=== PATIENT | female | born 1960 | race Caucasian/White ===

== ENCOUNTER 2020-07-09 04:59 | Emergency (ER) | payer SELFPAY ==
[~2020-07-09] VITALS: Ht 157.5 cm; Wt 80.3 kg
--- NOTE | 2020-07-09 05:56 | NUR ---
CC OF NUMBNESS IN NECK AND L ARM FOR 1 MONTH WORSENING TODAY. PT STATES SHE HAS HAD INTERMITTENT BLURRY VISION AND DIFFICULTY SWALLOWING OVER LAST MONTH. PT APPEARS TO BE FORGETFUL ABOUT QUESTIONS IMMEDIATELY ASKED. PT A&0 X4 OTHERWISE. PUPILS PEARRLA, [employer] OW[employer] 4/4 BILAT UPPER AND LOWER EXT, NO WEAKNESS, DENIES DIZZINESS/LIGHTHEADNESS. DENIES HX OF CVA BUT STATES SHE HAS FAMILY HX OF IT.
--- NOTE | 2020-07-09 06:18 | NUR ---
PT IN CT
[2020-07-09 06:27] LABS: BASOPHILS % (AUTO) 1 % (0-1); EOSINOPHILS % (AUTO) 4 % (1-7); LYMPHOCYTES % (AUTO) 39 % (22-44); MEAN CORPUSCULAR HEMOGLOBIN 31.3 pg (27.0-34.8); MEAN CORPUSCULAR HGB CONC 33.8 g/dL (32.4-35.8); MEAN PLATELET VOLUME 7.5 fL (7.4-10.4); MONOCYTES % (AUTO) 7 % (2-9); NEUTROPHILS % (AUTO) 49 % (42-75); PLATELET COUNT 288 x10^3/uL (130-400); RED BLOOD COUNT 4.52 x10^6/uL (3.82-5.3); RED CELL DISTRIBUTION WIDTH 12.8 % (9.6-15.2)
--- NOTE | 2020-07-09 06:30 | NUR ---
BACK FROM CT
[2020-07-09 06:36] LABS: MD NO
[2020-07-09 06:39] LABS: ALANINE AMINOTRANSFERASE 30 U/L (12-78); ALBUMIN 3.8 g/dL (3.4-5.0); ANION GAP 6 mmol/L (5-15); CHLORIDE 110 mmol/L (98-107); CREATININE 0.88 mg/dL (0.55-1.02)
[2020-07-09 06:43] LABS: ALKALINE PHOSPHATASE 92 U/L (45-117); BILIRUBIN,TOTAL 0.4 mg/dL (0.2-1.0); TOTAL PROTEIN 7.7 g/dL (6.4-8.2); TROPONIN I < 0.015 ng/mL (0.000-0.045)
--- NOTE | 2020-07-09 06:57 | NUR ---
RECEIVED REPORT FROM LITO RN
[2020-07-09 07:15] VITALS: BP 127/94
--- NOTE | 2020-07-09 07:35 | NUR ---
PT RESTING IN ED [facility]. PT STATES SHE HAS PAIN IN THE NECK AND SHOULDER. PT MADE COMFORTABLE WITH BLANKET AND SHEET. AWAITING FURTHER ORDERS.
== END 2020-07-09 08:02 | disposition home or self-care (01) ==
LOC: ED 07:14
DX: M54.12 Radiculopathy, cervical region (principal); R94.31 Abnormal electrocardiogram [ECG] [EKG]; R07.9 Chest pain, unspecified; R51.9 Headache, unspecified; I10 Essential (primary) hypertension
CPT/HCPCS: 36415; 70450; 71045; 72125; 80053; 84484; 85025; 93005; 99285